=== PATIENT | male | born 1970 | race Caucasian/White ===

== ENCOUNTER 2018-10-28 11:59 | Emergency (ER) | payer MEDICAID, OTHER ==
[2018-10-28] MEDS: IBUPROFEN 800 MG TAB PO (13:26)
== END 2018-10-28 13:30 | disposition home or self-care (01) ==
LOC: FTE 11:59
DX: J11.1 Influenza due to unidentified influenza virus with other respiratory manifestations (principal)
CPT/HCPCS: 99283; Z7502